=== PATIENT | male | born 2000 | race Two or more races ===

== ENCOUNTER 2020-10-11 14:31 | Emergency (ER) | payer OTHER ==
[~2020-10-11] VITALS: Ht 185.4 cm; Wt 83.9 kg
[2020-10-11] MEDS ORDERED: MORGIDOX100 MG PO (16:46)
[2020-10-11] MEDS ORDERED: TUSNEL LIQUID178 ML PO (16:46)
== END 2020-10-11 18:05 | disposition home or self-care (01) ==
LOC: EMR PED 14:31 → ER 14:53
DX: J06.9 Acute upper respiratory infection, unspecified (principal); B96.0 Mycoplasma pneumoniae [M. pneumoniae] as the cause of diseases classified elsewhere; Z03.818 Encounter for observation for suspected exposure to other biological agents ruled out